=== PATIENT | male | born 1970 | race Caucasian/White ===

== ENCOUNTER 2022-07-15 18:37 | Emergency (ER) | payer BC ==
[2022-07-15 18:51] VITALS: BP 150/96; PULSE 64; RESP 20; TEMP 99.5; BMI 26.3
[2022-07-15 19:41] LABS: HEMATOCRIT 44.5 % (35.4-49); HEMOGLOBIN 15.3 G/dL (11.7-16.9); MCH 32.9 pg (25.7-33.7); MCHC 34.4 g/dl (32.0-35.9); MEAN CELL VOLUME 95.6 fl (80-96); PLATELET COUNT 198.7 10^3/uL (134-434); RBC 4.66 10^6/uL (4.00-5.60); WHITE BLOOD COUNT 12.5 10^3/uL (4.0-10.8)
[2022-07-15 19:46] LABS: ALBUMIN 3.7 g/dl (3.4-5.0); BILIRUBIN,TOTAL 0.7 mg/dl (0.2-1); CREATININE 0.9 mg/dl (0.55-1.3); TOT PROT 6.7 g/dl (6.4-8.2)
[2022-07-15 20:33] LABS: PLATELET ESTIMATE ADEQUATE
[2022-07-15] MEDS ORDERED: KETOROLAC TROMETHAMINE 30 MG/1 ML VIAL IVPUSH ONE (21:39)
[2022-07-15] MEDS ORDERED: metroNIDAZOLE 500 MG TABLET PO ONE (21:40)
[2022-07-15] MEDS ORDERED: metroNIDAZOLE 250 MG TABLET ONE (21:42)
[2022-07-15] MEDS ORDERED: KETOROLAC TROMETHAMINE 30 MG/1 ML VIAL ONE (21:42)
== END 2022-07-15 21:47 | disposition home or self-care (01) ==
LOC: FER 18:37
PROC: 3E0333Z Introduction of Anti-inflammatory into Peripheral Vein, Percutaneous Approach (ICD-10-PCS; principal; 2022-07-15)
DX: K57.92 Diverticulitis of intestine, part unspecified, without perforation or abscess without bleeding (principal)
CPT/HCPCS: 36415; 74176-TC; 80053; 81003; 81015; 85025; 99284-25